=== PATIENT | female | born 1995 | race Caucasian/White ===

== ENCOUNTER 2018-06-29 06:46 | Emergency (ER) | payer MEDICAID, OTHER ==
[2018-06-29 06:46] VITALS: BMI 174.2
[2018-06-29 06:56] VITALS: BP 123/78
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
[2018-06-29 07:27] VITALS: PULSE 78; RESP 18; TEMP 98.7; O2SAT 99
== END 2018-06-29 07:10 | disposition left against medical advice (07) ==
LOC: ED 06:46
DX: F41.9 Anxiety disorder, unspecified (principal); R55 Syncope and collapse